=== PATIENT | male | born 1965 | race Caucasian/White ===

== ENCOUNTER 2022-06-17 18:45 | Emergency (ER) | payer SELFPAY ==
--- NOTE | 2022-06-17 18:58 | NUR ---
PT AMBULATED FROM [place] TO LOBBY WITH BELONGINGS
--- NOTE | 2022-06-17 19:20 | NUR ---
PATIENT CALLED TO TRIAGE NO RESPONSE PATIENT LEFT WITHOUT BEING SEEN BY DR. RAVI. NO FURTHER CARE PROVIDED FOR PATIENT.
--- NOTE | 2022-06-17 19:25 | NUR ---
CALLED FOR THE SECOND TIME, NO RESPONSE
--- NOTE | 2022-06-17 19:36 | NUR ---
CALLED FOR THE THIRD TIME NO RESPONSE
== END 2022-06-17 19:20 | disposition left against medical advice (07) ==
LOC: MED 18:45
DX: F10.129 Alcohol abuse with intoxication, unspecified (principal); Z53.21 Procedure and treatment not carried out due to patient leaving prior to being seen by health care provider; Y90.9 Presence of alcohol in blood, level not specified